=== PATIENT | female | born 1965 | race Caucasian/White ===

== ENCOUNTER → 2023-04-01 08:56 | Outpatient (REF) | payer OTHER, SELFPAY | LOC: HWRAD 08:56 | PROVIDERS: ATTENDING PHYSICIAN Family Medicine | DX: E04.1 Nontoxic single thyroid nodule (principal) | CPT/HCPCS: 76536 ==

== ENCOUNTER → 2023-07-11 10:23 | Outpatient (REF) | payer OTHER, SELFPAY | LOC: HWWDC 10:23 | PROVIDERS: ATTENDING PHYSICIAN Obstetrics & Gynecology Gynecology; FAMILY PHYSICIAN Family Medicine | DX: Z12.31 Encounter for screening mammogram for malignant neoplasm of breast (principal) | CPT/HCPCS: 77063; 77067 ==

== ENCOUNTER → 2023-10-07 10:42 | Outpatient (REF) | payer OTHER, SELFPAY | LOC: HWRAD 10:42 | PROVIDERS: ATTENDING PHYSICIAN Physician Assistant; FAMILY PHYSICIAN Family Medicine | DX: M25.531 Pain in right wrist (principal); M25.551 Pain in right hip; M25.552 Pain in left hip; M25.559 Pain in unspecified hip | CPT/HCPCS: 73110; 73523 ==

== ENCOUNTER → 2024-02-10 10:16 | Outpatient (REF) | payer OTHER, SELFPAY | LOC: HWRAD 10:16 | PROVIDERS: ATTENDING PHYSICIAN Nurse Practitioner Family; FAMILY PHYSICIAN Family Medicine | DX: R91.1 Solitary pulmonary nodule (principal) | CPT/HCPCS: 71250 ==

== ENCOUNTER → 2024-04-28 11:33 | Outpatient (REF) | payer OTHER, SELFPAY | LOC: HWRAD 11:33 | PROVIDERS: ATTENDING PHYSICIAN Internal Medicine Rheumatology; FAMILY PHYSICIAN Family Medicine | DX: M16.11 Unilateral primary osteoarthritis, right hip (principal); M54.2 Cervicalgia; R76.8 Other specified abnormal immunological findings in serum | CPT/HCPCS: 72040 ==

== ENCOUNTER → 2024-06-22 09:51 | Outpatient (REF) | payer OTHER, SELFPAY | LOC: EMG 09:51 | PROVIDERS: ATTENDING PHYSICIAN Family Medicine | DX: M50.30 Other cervical disc degeneration, unspecified cervical region (principal); M54.2 Cervicalgia; R20.2 Paresthesia of skin | CPT/HCPCS: 95886; 95911 ==